=== PATIENT | male | born 1940 | race Caucasian/White ===

== ENCOUNTER 2017-05-03 18:02 | Inpatient (IN) | payer OTHER ==
[2017-05-03] MEDS: ASPIRIN 325 MG TAB PO (18:35)
[2017-05-03 20:12] LABS: ADD MAN DIFF? NO
[2017-05-03 20:15] LABS: BASOPHILS % 0.1 % (0.0-2.0); HEMATOCRIT 38.3 % (42.0-52.0); HEMOGLOBIN 11.7 g/dl (14.0-18.0); LYMPHOCYTES # 0.9 10^3/ul (0.8-2.9); LYMPHOCYTES % 5.6 % (15.0-51.0); MEAN CORPUSCULAR HEMOGLOBIN 27.2 pg (29.0-33.0); MEAN CORPUSCULAR HGB CONC 30.5 g/dl (32.0-37.0); MEAN CORPUSCULAR VOLUME 89.1 fl (82.0-101.0); MEAN PLATELET VOLUME 10.2 fl (7.4-10.4); MONOCYTE # 0.2 10^3/ul (0.3-0.9); MONOCYTES % 1.1 % (0.0-11.0); NEUTROPHIL # 14.6 10^3/ul (1.6-7.5); NEUTROPHILS % 92.4 % (39.0-77.0); PLATELET COUNT 132 10^3/UL (140-415); RED CELL DISTRIBUTION WIDTH 15.6 % (11.5-14.5)
[2017-05-03 20:15] LABS: WHITE BLOOD COUNT 15.8 10^3/ul (4.8-10.8)
[2017-05-03 20:32] LABS: INR 1.07; PARTIAL THROMBOPLASTIN TIME 32.2 Sec (25.0-35.0); PT RATIO 1.1
[2017-05-03 20:33] LABS: ANION GAP 14 (8-16); BLOOD UREA NITROGEN 31 mg/dl (7-20); CALCIUM 7.2 mg/dl (8.4-10.2); CARBON DIOXIDE 22 mmol/L (21-31); CHLORIDE 103 mmol/L (97-110); CREATININE 0.76 mg/dl (0.61-1.24); GLUCOSE 79 mg/dl (70-220); POTASSIUM 4.2 mmol/L (3.5-5.1); SODIUM 135 mmol/L (135-144)
[2017-05-03 20:45] LABS: TROPONIN-I 0.017 ng/ml (0.00-0.12)
[2017-05-03 22:12] LABS: URINE PH (Dip) POC 6.5 (5.0-8.5)
[2017-05-03 22:12] LABS: URINE BLOOD (Dip) POC 2+ (NEGATIVE); URINE GLUCOSE (Dip) POC Negative (NEGATIVE); URINE KETONES (Dip) POC 1+ (NEGATIVE); URINE LEUKOCYTE EST (Dip) POC Negative (NEGATIVE); URINE NITRITE (Dip) POC Negative (NEGATIVE); URINE TOTAL PROTEIN POC 3+ (NEGATIVE)
[2017-05-03] MEDS: SOD CHLORIDE 0.9% 1,000 ML IV ×2 (22:13)
[2017-05-03] MEDS: PIPER-TAZO 3.375 GM IV (PMX) 100 ML IVPB (22:13)
[2017-05-03] MEDS: VANCOMYCIN 1 GM (PMX) 250 ML IVPB (22:26)
[2017-05-03] MEDS ORDERED: ACETAMINOPHEN 325 MG TAB PO ×2 (22:30→23:00)
[2017-05-03] MEDS ORDERED: ONDANSETRON 4 MG INJ IV ×2 (22:30→23:00)
[2017-05-03] MEDS: ALTEPLASE (CATHFLO) 2 MG INJ CATHETER (22:51)
[2017-05-03 22:57] LABS: ADD UMIC YES; UR ASCORBIC ACID NEGATIVE (NEGATIVE); UR BILIRUBIN (Dip) NEGATIVE (NEGATIVE); UR BLOOD (Dip) 2+ mg/dL (NEGATIVE); UR CLARITY CLEAR (CLEAR); UR COLOR YELLOW (YELLOW); UR GLUCOSE (Dip) NEGATIVE (NEGATIVE); UR KETONES (Dip) TRACE mg/dL (NEGATIVE); UR LEUKOCYTE ESTERASE (Dip) NEGATIVE Leu/ul (NEGATIVE); UR NITRITE (Dip) NEGATIVE (NEGATIVE); UR RBC 2 /HPF (0-5); UR SPECIFIC GRAVITY (Dip) 1.017 (1.003-1.030); UR TOTAL PROTEIN (Dip) 3+ mg/dl (NEGATIVE); UR UROBILINOGEN (Dip) NEGATIVE (NEGATIVE); UR WBC 2 /HPF (0-5)
[2017-05-03] MEDS ORDERED: NACL 0.9% 3 ML SYG IV (23:00)
[2017-05-04 02:20] LABS: PROSTATE SPECIFIC ANTIGEN 0.1 ng/ml (0.0-4.0)
[2017-05-04] MEDS ORDERED: DEXTROSE 50% 50 ML SYRINGE IV ×2 (04:15)
[2017-05-04] MEDS ORDERED: GLUCOSE GEL 15 GRAM TUBE BUCCAL (04:15)
[2017-05-04] MEDS ORDERED: GLUCAGON 1 MG INJ IM (04:15)
[2017-05-04] MEDS ORDERED: GLUCOSE GEL 15 GRAM TUBE PO ×2 (04:15)
[2017-05-04] MEDS: MIDODRINE 5 MG TAB PO ×4 (04:30→20:30)
[2017-05-04] MEDS ORDERED: ALBUTEROL/IPRATROPIUM (NEB) 3 ML AMP INH (04:30)
[2017-05-04] MEDS ORDERED: ZOLPIDEM 5 MG TAB PO (04:30)
[2017-05-04] MEDS ORDERED: AL HYDROX/MG HYDROX/SIMETH 30 ML CUP PO (04:30)
[2017-05-04 05:53] LABS: ADD MAN DIFF? NO
[2017-05-04 05:56] LABS: WHITE BLOOD COUNT 16.2 10^3/ul (4.8-10.8)
[2017-05-04 05:56] LABS: BASOPHILS % 0.1 % (0.0-2.0); HEMATOCRIT 33.5 % (42.0-52.0); HEMOGLOBIN 10.4 g/dl (14.0-18.0); LYMPHOCYTES # 1.7 10^3/ul (0.8-2.9); LYMPHOCYTES % 10.4 % (15.0-51.0); MEAN CORPUSCULAR HEMOGLOBIN 27.4 pg (29.0-33.0); MEAN CORPUSCULAR VOLUME 88.4 fl (82.0-101.0); MEAN PLATELET VOLUME 10.7 fl (7.4-10.4); MONOCYTE # 0.6 10^3/ul (0.3-0.9); MONOCYTES % 3.8 % (0.0-11.0); NEUTROPHIL # 13.8 10^3/ul (1.6-7.5); NEUTROPHILS % 85.2 % (39.0-77.0); PLATELET COUNT 128 10^3/UL (140-415); RED BLOOD COUNT 3.79 10^6/ul (4.70-6.10); RED CELL DISTRIBUTION WIDTH 15.6 % (11.5-14.5)
[2017-05-04 06:21] LABS: ALANINE AMINOTRANSFERASE 23 IU/L (13-69); ALBUMIN 1.8 g/dl (3.3-4.9); ALBUMIN/GLOBULIN RATIO 0.69; ALKALINE PHOSPHATASE 114 IU/L (42-121); ANION GAP 15 (8-16); ASPARTATE AMINO TRANSFERASE 22 IU/L (15-46); BLOOD UREA NITROGEN 30 mg/dl (7-20); CALCIUM 6.8 mg/dl (8.4-10.2); CARBON DIOXIDE 19 mmol/L (21-31); CHLORIDE 108 mmol/L (97-110); CREATININE 0.66 mg/dl (0.61-1.24); MAGNESIUM 1.9 mg/dl (1.7-2.5); POTASSIUM 4.2 mmol/L (3.5-5.1); SODIUM 138 mmol/L (135-144); TOTAL PROTEIN 4.4 g/dl (6.1-8.1)
[2017-05-04] MEDS ORDERED: VANCOMYCIN IV PER PHARMACY XX (06:30)
[2017-05-04 06:44] LABS: GLUCOSE 50 mg/dl (70-220)
[2017-05-04 07:21] LABS: HEMOGLOBIN A1C 5.5 % (0-5.9)
[2017-05-04] MEDS: PIPER-TAZO 3.375 GM IV (PMX) 100 ML IVPB ×3 (07:34→17:56)
[2017-05-04] MEDS: INSULIN ASPART [NOVOLOG] 3 ML PEN SC ×4 (08:00→21:00)
[2017-05-04] MEDS: predniSONE 20 MG TAB PO (08:31)
[2017-05-04] MEDS: ENOXAPARIN 80 MG/0.8 ML SYG SC (08:31)
[2017-05-04] MEDS: PANTOPRAZOLE (EC) 40 MG TAB PO (08:31)
[2017-05-04 09:21] LABS: LACTIC ACID 1.2 mmol/L (0.5-2.0)
[2017-05-04] MEDS: POTASSIUM CHLORIDE (SR) 20 MEQ TAB PO (09:31)
[2017-05-04] MEDS ORDERED: VANCOMYCIN 750 MG in DEXTROSE 5% 150 ML IVPB (15:00)
[2017-05-04] MEDS ORDERED: ALBUTEROL 0.083% (NEB) 2.5 MG/3 ML AMP HHN (15:30)
[2017-05-04] MEDS: ALBUTEROL 0.083% (NEB) 2.5 MG/3 ML AMP HHN ×2 (15:30→20:16)
[2017-05-04] MEDS: VANCOMYCIN 750 MG in SOD CHLORIDE 0.9% 150 ML IVPB (15:35)
[2017-05-04] MEDS: BALSAM PERU/CASTOR OIL 60 GM TUBE TOP (21:56)
[2017-05-04] MEDS: APIXABAN 5 MG TABLET PO (21:56)
[2017-05-04] MEDS: ATORVASTATIN 20 MG TAB PO (21:56)
[2017-05-04] MEDS: GUAIFENESIN LA 600 MG TABSR PO (22:33)
[2017-05-05] MEDS: PIPER-TAZO 3.375 GM IV (PMX) 100 ML IVPB ×3 (00:34→12:06)
[2017-05-05] MEDS: ACCU-CHEK XX (02:00)
[2017-05-05] MEDS: VANCOMYCIN 750 MG in SOD CHLORIDE 0.9% 150 ML IVPB (03:21)
[2017-05-05] MEDS: MIDODRINE 5 MG TAB PO ×3 (04:30→20:30)
[2017-05-05 06:49] LABS: ADD MAN DIFF? NO
[2017-05-05 06:55] LABS: BASOPHILS % 0.1 % (0.0-2.0); HEMATOCRIT 36.1 % (42.0-52.0); LYMPHOCYTES # 1.5 10^3/ul (0.8-2.9); MEAN CORPUSCULAR HEMOGLOBIN 27.6 pg (29.0-33.0); MEAN CORPUSCULAR HGB CONC 30.5 g/dl (32.0-37.0); MEAN CORPUSCULAR VOLUME 90.7 fl (82.0-101.0); MEAN PLATELET VOLUME 10.4 fl (7.4-10.4); MONOCYTE # 0.9 10^3/ul (0.3-0.9); MONOCYTES % 5.6 % (0.0-11.0); NEUTROPHIL # 13.6 10^3/ul (1.6-7.5); NEUTROPHILS % 84.6 % (39.0-77.0); PLATELET COUNT 152 10^3/UL (140-415); RED BLOOD COUNT 3.98 10^6/ul (4.70-6.10); RED CELL DISTRIBUTION WIDTH 15.6 % (11.5-14.5)
[2017-05-05 07:13] LABS: ALBUMIN 1.4 g/dl (3.3-4.9); ANION GAP 11 (8-16); BLOOD UREA NITROGEN 27 mg/dl (7-20); CALCIUM 6.8 mg/dl (8.4-10.2); CARBON DIOXIDE 19 mmol/L (21-31); CHLORIDE 109 mmol/L (97-110); CREATININE 0.59 mg/dl (0.61-1.24); GLUCOSE 62 mg/dl (70-220); MAGNESIUM 1.8 mg/dl (1.7-2.5); POTASSIUM 3.8 mmol/L (3.5-5.1); SODIUM 135 mmol/L (135-144)
[2017-05-05] MEDS: ALBUTEROL 0.083% (NEB) 2.5 MG/3 ML AMP HHN ×3 (07:36→19:58)
[2017-05-05] MEDS: INSULIN ASPART [NOVOLOG] 3 ML PEN SC ×4 (08:00→20:57)
[2017-05-05] MEDS: GUAIFENESIN LA 600 MG TABSR PO ×2 (08:58→20:59)
[2017-05-05] MEDS: POTASSIUM CHLORIDE (SR) 20 MEQ TAB PO (08:58)
[2017-05-05] MEDS: predniSONE 20 MG TAB PO (08:58)
[2017-05-05] MEDS: APIXABAN 5 MG TABLET PO ×2 (08:58→21:00)
[2017-05-05] MEDS: BALSAM PERU/CASTOR OIL 60 GM TUBE TOP ×2 (08:59→21:00)
[2017-05-05 15:07] LABS: VANCOMYCIN,TROUGH 13.5 ug/ml (10.0-20.0)
[2017-05-05] MEDS: LEVOFLOXACIN 750 MG TABLET PO (17:40)
[2017-05-05] MEDS: ATORVASTATIN 20 MG TAB PO (20:59)
[2017-05-06] MEDS: ACCU-CHEK XX (01:11)
[2017-05-06] MEDS: MIDODRINE 5 MG TAB PO ×3 (04:14→20:30)
[2017-05-06 05:47] LABS: ADD MAN DIFF? NO
[2017-05-06 05:52] LABS: BASOPHILS % 0.2 % (0.0-2.0); EOSINOPHILS % 0.1 % (0.0-7.0); HEMATOCRIT 34.7 % (42.0-52.0); HEMOGLOBIN 11.1 g/dl (14.0-18.0); LYMPHOCYTES # 1.2 10^3/ul (0.8-2.9); LYMPHOCYTES % 9.1 % (15.0-51.0); MEAN CORPUSCULAR VOLUME 87.6 fl (82.0-101.0); MONOCYTES % 7.4 % (0.0-11.0); NEUTROPHILS % 82.4 % (39.0-77.0); PLATELET COUNT 204 10^3/UL (140-415); RED BLOOD COUNT 3.96 10^6/ul (4.70-6.10); RED CELL DISTRIBUTION WIDTH 15.2 % (11.5-14.5)
[2017-05-06 05:52] LABS: WHITE BLOOD COUNT 13.3 10^3/ul (4.8-10.8)
[2017-05-06] MEDS: LEVOFLOXACIN 750 MG TABLET PO (06:00)
[2017-05-06 06:39] LABS: ALBUMIN 1.8 g/dl (3.3-4.9); ANION GAP 10 (8-16); BLOOD UREA NITROGEN 25 mg/dl (7-20); CARBON DIOXIDE 22 mmol/L (21-31); CHLORIDE 107 mmol/L (97-110); CREATININE 0.72 mg/dl (0.61-1.24); GLUCOSE 63 mg/dl (70-220); MAGNESIUM 1.9 mg/dl (1.7-2.5); PHOSPHORUS 2.6 mg/dl (2.5-4.9); SODIUM 135 mmol/L (135-144)
[2017-05-06] MEDS: ALBUTEROL 0.083% (NEB) 2.5 MG/3 ML AMP HHN ×3 (07:32→19:27)
[2017-05-06] MEDS: INSULIN ASPART [NOVOLOG] 3 ML PEN SC ×4 (08:00→20:52)
[2017-05-06] MEDS: APIXABAN 5 MG TABLET PO ×2 (08:28→20:53)
[2017-05-06] MEDS: GUAIFENESIN LA 600 MG TABSR PO ×2 (08:28→20:52)
[2017-05-06] MEDS: predniSONE 20 MG TAB PO (08:28)
[2017-05-06] MEDS: POTASSIUM CHLORIDE (SR) 20 MEQ TAB PO (08:28)
[2017-05-06] MEDS: BALSAM PERU/CASTOR OIL 60 GM TUBE TOP ×2 (08:31→20:54)
[2017-05-06] MEDS: FUROSEMIDE 20 MG INJ IV ×2 (12:00→12:56)
[2017-05-06] MEDS: FUROSEMIDE 40 MG TAB PO (17:08)
[2017-05-06] MEDS: ATORVASTATIN 20 MG TAB PO (20:52)
[2017-05-07] MEDS: MIDODRINE 5 MG TAB PO ×3 (04:30→20:30)
[2017-05-07 05:15] LABS: ADD MAN DIFF? NO
[2017-05-07 05:22] LABS: BASOPHILS % 0.2 % (0.0-2.0); EOSINOPHILS % 0.1 % (0.0-7.0); HEMATOCRIT 34.7 % (42.0-52.0); LYMPHOCYTES # 1.7 10^3/ul (0.8-2.9); MEAN CORPUSCULAR HEMOGLOBIN 27.6 pg (29.0-33.0); MEAN CORPUSCULAR HGB CONC 31.7 g/dl (32.0-37.0); MONOCYTE # 0.9 10^3/ul (0.3-0.9); MONOCYTES % 7.3 % (0.0-11.0); NEUTROPHIL # 9.5 10^3/ul (1.6-7.5); NEUTROPHILS % 77.8 % (39.0-77.0); PLATELET COUNT 211 10^3/UL (140-415); RED BLOOD COUNT 3.99 10^6/ul (4.70-6.10); RED CELL DISTRIBUTION WIDTH 15.3 % (11.5-14.5)
[2017-05-07 05:22] LABS: WHITE BLOOD COUNT 12.2 10^3/ul (4.8-10.8)
[2017-05-07 05:37] LABS: ALBUMIN 1.7 g/dl (3.3-4.9); ANION GAP 6 (8-16); BLOOD UREA NITROGEN 26 mg/dl (7-20); CALCIUM 7.2 mg/dl (8.4-10.2); CARBON DIOXIDE 22 mmol/L (21-31); CHLORIDE 108 mmol/L (97-110); CREATININE 0.84 mg/dl (0.61-1.24); GLUCOSE 55 mg/dl (70-220); MAGNESIUM 1.8 mg/dl (1.7-2.5); PHOSPHORUS 2.4 mg/dl (2.5-4.9); POTASSIUM 4.2 mmol/L (3.5-5.1); SODIUM 132 mmol/L (135-144)
[2017-05-07] MEDS: LEVOFLOXACIN 750 MG TABLET PO (06:27)
[2017-05-07] MEDS: ALBUTEROL 0.083% (NEB) 2.5 MG/3 ML AMP HHN ×2 (07:25→15:10)
[2017-05-07] MEDS: INSULIN ASPART [NOVOLOG] 3 ML PEN SC ×3 (08:00→17:20)
[2017-05-07] MEDS: APIXABAN 5 MG TABLET PO ×2 (08:33→20:29)
[2017-05-07] MEDS: predniSONE 20 MG TAB PO (08:33)
[2017-05-07] MEDS: POTASSIUM CHLORIDE (SR) 20 MEQ TAB PO (08:33)
[2017-05-07] MEDS: FUROSEMIDE 40 MG TAB PO (08:33)
[2017-05-07] MEDS: GUAIFENESIN LA 600 MG TABSR PO ×2 (08:33→20:29)
[2017-05-07] MEDS: BALSAM PERU/CASTOR OIL 60 GM TUBE TOP ×2 (08:38→20:31)
[2017-05-07] MEDS: ATORVASTATIN 20 MG TAB PO (20:28)
[2017-05-11] MEDS ORDERED: APIXABAN 5 MG TABLET PO (21:00)
== END 2017-05-07 20:55 | DRG 194 ==
LOC: E/R 18:02 → PP2 22:10
DX: J18.9 Pneumonia, unspecified organism (principal); I82.622 Acute embolism and thrombosis of deep veins of left upper extremity; J90 Pleural effusion, not elsewhere classified; I95.9 Hypotension, unspecified; E11.22 Type 2 diabetes mellitus with diabetic chronic kidney disease; Y95 Nosocomial condition; E78.5 Hyperlipidemia, unspecified; I12.9 Hypertensive chronic kidney disease with stage 1 through stage 4 chronic kidney disease, or unspecified chronic kidney disease; N18.9 Chronic kidney disease, unspecified; L89.152 Pressure ulcer of sacral region, stage 2; K21.9 Gastro-esophageal reflux disease without esophagitis; Z79.4 Long term (current) use of insulin
CPT/HCPCS: 36415; 71045; 71250; 80048; 80053; 80069; 80202; 81001; 81003; 82962; 83036; 83605; 83735; 83890; 84153; 84154; 84443; 84484; 85025; 85300; 85302; 85305; 85610; 85613; 85730; 87040; 87081; 93005; 93970; 94640; 94664; 96365; 96375; 99285-25

== ENCOUNTER 2017-05-11 00:36 | Emergency (ER) | payer OTHER ==
[2017-05-11] MEDS ORDERED: SUCCINYLCHOLINE CHLORIDE 100 MG/5 ML SYG IV ×2 (00:58→07:00)
[2017-05-11] MEDS ORDERED: SOD CHLORIDE 0.9% 1,000 ML IV (00:58)
[2017-05-11] MEDS ORDERED: NORepinephrine 8MG/250 ML (PMX 250 ML IV (00:58)
[2017-05-11] MEDS ORDERED: CEFEPIME 2GM/50 ML (PMX) 50 ML IVPB (00:58)
[2017-05-11] MEDS ORDERED: PROPOFOL 100 ML IV ×2 (00:58→01:14)
[2017-05-11] MEDS ORDERED: VANCOMYCIN 1 GM (PMX) 250 ML IVPB (01:00)
[2017-05-11 01:38] LABS: WHITE BLOOD COUNT 24.2 10^3/ul (4.8-10.8)
[2017-05-11 01:38] LABS: ABNORMAL IP MESSAGE 1; HEMATOCRIT 37.3 % (42.0-52.0); MEAN CORPUSCULAR HEMOGLOBIN 27.6 pg (29.0-33.0); MEAN CORPUSCULAR HGB CONC 32.2 g/dl (32.0-37.0); MEAN CORPUSCULAR VOLUME 85.9 fl (82.0-101.0); MEAN PLATELET VOLUME 9.8 fl (7.4-10.4); NUCLEATED RED BLOOD CELLS% 0.2 /100WBC (0.0-0.0); PLATELET COUNT 142 10^3/UL (140-415); POSITIVE DIFF @See below; RED BLOOD COUNT 4.34 10^6/ul (4.70-6.10); RED CELL DISTRIBUTION WIDTH 15.9 % (11.5-14.5)
[2017-05-11 01:41] LABS: ADD MAN DIFF? YES
[2017-05-11 01:57] LABS: INR 3.38; PROTIME 35.2 Sec (11.9-14.9); PT RATIO 2.8
[2017-05-11 01:58] LABS: PARTIAL THROMBOPLASTIN TIME 44.5 Sec (25.0-35.0)
[2017-05-11 02:04] LABS: ALANINE AMINOTRANSFERASE 28 IU/L (13-69); ALBUMIN 1.3 g/dl (3.3-4.9); ALBUMIN/GLOBULIN RATIO 0.61; ALKALINE PHOSPHATASE 84 IU/L (42-121); ANION GAP 20 (8-16); ASPARTATE AMINO TRANSFERASE 28 IU/L (15-46); BLOOD UREA NITROGEN 36 mg/dl (7-20); CALCIUM 6.3 mg/dl (8.4-10.2); CARBON DIOXIDE 11 mmol/L (21-31); CHLORIDE 109 mmol/L (97-110); CREATININE 1.99 mg/dl (0.61-1.24); GLUCOSE 108 mg/dl (70-220); POTASSIUM 4.8 mmol/L (3.5-5.1); SODIUM 135 mmol/L (135-144); TOTAL PROTEIN 3.4 g/dl (6.1-8.1)
[2017-05-11 02:07] LABS: LACTIC ACID 7.2 mmol/L (0.5-2.0)
[2017-05-11 02:11] LABS: BAND NEUTROPHILS #M 2.9 10^3/ul (0.0-0.6); BAND NEUTROPHILS % (M) 12 % (0-4); GIANT THROMBO% (M) 1 % (0-0); HYPOCHROMASIA 1+ (0-0); LYMPHOCYTES #M 1.6 10^3/ul (0.8-2.9); LYMPHOCYTES % (M) 7 % (15-51); METAMYELOCYTES #M 0.2 10^3/ul (0.0-0.0); METAMYELOCYTES %M 1 % (0-0); MONOCYTE #M 0.9 10^3/ul (0.3-0.9); MONOCYTES % (M) 4 % (0-11); PLATELET ESTIMATE NORMAL; POIKILOCYTOSIS 1+ (0-0); POLYCHROMASIA 1+ (0-0); SEG NEUT #M 19.1 10^3/ul (1.6-7.5); SEGMENTED NEUTROPHILS (M) % 76 % (39-77); SMUDGE%M 2 % (0-0)
[2017-05-11 02:16] LABS: TROPONIN-I 0.102 ng/ml (0.00-0.12)
== END 2017-05-11 06:28 | disposition expired ==
LOC: E/R 00:36
DX: I46.9 Cardiac arrest, cause unspecified (principal); I10 Essential (primary) hypertension; E11.9 Type 2 diabetes mellitus without complications; R06.02 Shortness of breath; Z79.4 Long term (current) use of insulin
CPT/HCPCS: 31500; 36415; 71045; 80053; 82962; 83605; 84484; 85025; 85610; 85730; 87040; 92950; 93005; 94002; 99285-25